=== PATIENT | female | born 1960 | race Caucasian/White ===

== ENCOUNTER 2018-08-07 07:11 | Emergency (ER) | payer BC ==
[2018-08-07 07:30] VITALS: BP 117/78
--- NOTE | 2018-08-07 07:32 | UC ---
General HPI - HPI Summary HPI Summary: RN notes - c/o tick bite on L leg behind the knee that she noticed this morning. States head was still in there. Pleasant 58 yo lady c/o L post knee tick. [place] discomfort and irritation, noted tick, still alive. Sister helped her pull it out, but head still stuck. No known hx lyme dz, or previous known tick bite. Length of time and tick configuration / conformity / type unclear. - History of Current Complaint Stated Complaint: TICK Time Seen by Provider: 08/07/18 07:29 Hx Obtained From: Patient - Allergy/Home Medications Allergies/Adverse Reactions: Allergies Allergy/AdvReac Type Severity Reaction Status Date / Time Fish Containing Products Allergy GI Upset Verified 08/07/18 07:26 milk Allergy GI Upset Verified 08/07/18 07:26 Sulfa (Sulfonamide Allergy Rash Verified 08/07/18 07:26 Antibiotics) Home Medications: Home Medications PARoxetine HCL TAB* [Paxil TAB*] 30 mg PO DAILY 08/07/18 [History Confirmed 08/21] PMH/Surg Hx/FS Hx/Imm Hx Previously Healthy: Yes - Surgical History Surgical History: None - Family History Known Family History: Positive: Non-Contributory - Social History Lives: With Family Review of Systems All Other Systems Reviewed And Are Negative: Yes Constitutional: Positive: Negative Skin: Positive: Other - see hpi Eyes: Positive: Negative ENT: Positive: Negative Respiratory: Positive: Negative Cardiovascular: Positive: Negative Gastrointestinal: Positive: Negative Genitourinary: Positive: Negative Motor: Positive: Negative Neurovascular: Positive: Negative Musculoskeletal: Positive: Other: - see hpi Neurological: Positive: Negative Psychological: Positive: Negative Is Patient Immunocompromised?: No Physical Exam Triage Information Reviewed: Yes Appearance: Well-Appearing, Well-Nourished Vital Signs Reviewed: Yes Eye Exam: Normal - grossly normal ENT Exam: Normal - grossly normal Neck exam: Normal Neck: Positive: Supple Respiratory Exam: Normal - RR normal, no tachypnea, no dyspnea Cardiovascular Exam: Normal - HR normal, pulses good. Nondiaphoretic Abdominal Exam: Normal Abdomen Description: Positive: Nontender Musculoskeletal Exam: Normal - gait steady Neurological Exam: Normal - grossly nonfocal Psychological Exam: Normal - conversing easily and appopriately. nad Skin Exam: Other - no visible or reported rash - EXCEPT tick post knee - approx 1.3cm diam red nonblanching irritation with tick head embedded. No fluctuance. Gait steady. Course/Dx - Course Course Of Treatment: EMLA cream applied to tick site. Removed via splinter forceps. Reviewed coa / tx / follow up Questions as posed answered to the best of my ability. - Diagnoses Provider Diagnosis: Tick bite Discharge - Sign-Out/Discharge Documenting (check all that apply): Patient Departure All imaging exams completed and their final reports reviewed: No Studies - Discharge Plan Condition: Stable Disposition: HOME Prescriptions: DOXYcycline CAP(*) [DOXYcycline 100MG CAP(*)] 200 mg PO DAILY #2 cap Hydrocortisone 1% CREAM* [Hytone Cream 1%*] 1 applic TOPICAL BID 7 Days #1 tube Patient Education Materials: Tick Bite (ED) Referrals: No Primary Care Phys,NOPCP [Primary Care Provider] - [facility] [Outside] Additional Instructions: Follow up with your primary care physician, routine appt if possible in the next month. Seek medical attention for any worse or new problems. Drink lots of water. Minimize prolonged direct sun exposure while taking antibiotics. - Billing Disposition and Condition Condition: STABLE Disposition: Home
[2018-08-07] MEDS ORDERED: Lidocaine 2.5%/Prilocain 2.5%* 5 GM TUBE TOPICAL ONE (07:34)
== END 2018-08-07 08:16 | disposition home or self-care (01) ==
LOC: UCCORT 07:11
DX: S80.262A Insect bite (nonvenomous), left knee, initial encounter (principal); W57.XXXA Bitten or stung by nonvenomous insect and other nonvenomous arthropods, initial encounter; Y92.9 Unspecified place or not applicable; Z88.2 Allergy status to sulfonamides; Z91.011 Allergy to milk products; Z91.013 Allergy to seafood
CPT/HCPCS: 99212; A9270-GY; G0463